=== PATIENT | male | born 1965 | race Caucasian/White ===

== ENCOUNTER → 2016-10-28 | Outpatient (CLI) | payer BC ==
[~2016-10-28] MED LIST: AZIT500T3 PO
[2016-10-28 12:38] LABS: BLOOD UREA NITROGEN 20 mg/dl (7-18); BUN/CREATININE RATIO 18.2 (10-20); CARBON DIOXIDE 26 mmol/L (21-32); CHLORIDE 109 mmol/L (98-107); CHOLESTEROL 196 mg/dl (0-200); GLUCOSE 148 mg/dl (70-99); POTASSIUM 4.3 mmol/L (3.5-5.1); SODIUM 142 mmol/L (136-145)
[2016-10-28 12:41] LABS: CHOLESTEROL/HDL RATIO 3.9; HDL CHOLESTEROL 50 mg/dl; LDL CHOLESTEROL CALCULATED 115 mg/dl; TRIGLYCERIDES 156 mg/dl (0-150); VERY LOW DENSITY LIPOPROT CALC 31 mg/dl
== END | disposition home or self-care (01) ==
LOC: C.LABPVFM 09:20
PROVIDERS: ATTEND Nurse Practitioner Family
DX: Z00.00 Encounter for general adult medical examination without abnormal findings (principal); Z13.220 Encounter for screening for lipoid disorders

== ENCOUNTER → 2016-11-04 | Outpatient (CLI) | payer BC ==
[2016-11-04 12:56] LABS: ESTIMATED AVERAGE GLUCOSE 163 mg/dl; HA1C FLAG Normal (Normal)
== END | disposition home or self-care (01) ==
LOC: C.LABPVFM 09:39
PROVIDERS: ATTEND Nurse Practitioner Family
DX: R73.01 Impaired fasting glucose (principal)

== ENCOUNTER → 2017-02-03 | Outpatient (CLI) | payer BC ==
[2017-02-03 12:28] LABS: BLOOD UREA NITROGEN 23 mg/dl (7-18); BUN/CREATININE RATIO 20.5 (10-20); CALCIUM 9.1 mg/dl (8.5-10.1); CARBON DIOXIDE 28 mmol/L (21-32); CHLORIDE 104 mmol/L (98-107); GLUCOSE 129 mg/dl (70-99); POTASSIUM 4.2 mmol/L (3.5-5.1); SODIUM 140 mmol/L (136-145)
[2017-02-03 13:03] LABS: ESTIMATED AVERAGE GLUCOSE 140 mg/dl; HA1C FLAG Normal (Normal)
== END | disposition home or self-care (01) ==
LOC: C.LABPVFM 08:01
PROVIDERS: ATTEND Nurse Practitioner Family
DX: E11.9 Type 2 diabetes mellitus without complications (principal)

== ENCOUNTER → 2017-06-30 | Day surgery (SDC) | payer BC ==
[2017-06-26 11:22] VITALS: Ht 177.8 cm; Wt 95.5 kg
[~2017-06-30] VITALS: Ht 177.8 cm; Wt 95.5 kg
[~2017-06-30] MED LIST changes: -AZIT500T3 PO; +LISI-729 PO; +METF500T PO; +PROPOFOL IV EMULSION 10 MG/ML 20 ML VIAL IV ONE
[2017-06-30 09:25] VITALS: TEMP 36.7
--- NOTE | 2017-06-30 09:39 | Endo History and Physical ---
History & Physical Date of Service: Jun 30, 2017. Chief Complaint: Screening Referring Physician: RELL Bush History of Present Illness 52 yo CM who presents for screening colonoscopy. Past Surgical History Hx Cardiac Surgery: No Hx Internal Defibrillator: No Hx Pacemaker: No Hx Abdominal Surgery: No Hx of Implantable Prosthesis: No Hx Post-Op Nausea and Vomiting: No Hx Cancer Surgery: Yes (SKIN EXCISION ON BACK) Hx Orthopedic: Yes (LUMBAR FUSION, LUMBAR FUSION REVISION) Hx Urinary Tract Surgery: No Family History None Social History Smoking Status: Never Smoker Hx Substance Use: No Hx Alcohol Use: Yes (OCCASIONALLY) Allergies Coded Allergies: Morphine (Verified Allergy, Unknown, VOMITTING, 06/26/17) Current Medications Reported Home Medications Medications Dose Route/Sig Max Daily Dose Days Date Category Zestril (Lisinopril) 5 Mg Tab 5 Mg PO QAM 06/26/17 Reported Glucophage (Metformin Hcl) 500 Mg Tab 500 Mg PO BID 06/26/17 Reported Vital Signs Weight (Kilograms): 95.45 Height (Feet): 5 Height (Inches): 10 Date Time Temp Pulse Resp B/P (MAP) Pulse Ox O2 Delivery O2 Flow Rate FiO2 06/30/17 09:25 36.7 68 18 127/87 (100) 97 Room Air Physical Exam General Appearance: WD/WN, no apparent distress Respiratory/Chest: Auscultation: breath sounds normal Cardiovascular: Heart Auscultation: RRR Abdomen: Bowel Sounds: normal Inspection & Palpation: soft, non-distended, no tenderness, guarding & rebound Assessment and Plan Assessment: 52 yo CM who presents for screening colonoscopy. Plan: Proceed with colonoscopy.
--- NOTE | 2017-06-30 10:21 | Discharge Instructions ---
Endoscopy Patient Instructions Date / Procedure(s) Performed Jun 30, 2017. Colonoscopy Allergy Information Coded Allergies: Morphine (Verified Allergy, Unknown, VOMITTING, 06/30/17) Discharge Date / Findings Jun 30, 2017. Colon polyp Internal hemorrhoids Medication Instructions Stopped Medication(s): Patient was told to stop taking his metformin on monday. OK to resume all medications today as prescribed Reported Home Medications Medications Dose Route/Sig Max Daily Dose Days Date Category Zestril (Lisinopril) 5 Mg Tab 5 Mg PO QAM 06/26/17 Reported Glucophage (Metformin Hcl) 500 Mg Tab 500 Mg PO BID 06/26/17 Reported Provider Instructions Activity Restrictions - No exercising or heavy lifting for 24 hours. - Do not drink alcohol the day of the procedure. - Do not drive a car or operate machinery until the day after the procedure. - Do not make any important decisions or sign important papers in 24 hours after the procedure. Following Day: - Return to full activity which may include returning to work/school. Diet Start your diet with liquids and light foods (jello, soup, juice, toast). Then eat your usual diet if not nauseated. Treatment For Common After Affects For mild abdominal pain, bloating, or excessive gas: - Rest - Eat lightly - Lie on right side Follow-Up Information Follow-up with RELL Bush as scheduled Anesthesia Information What You Should Know You have had a procedure that required some medicine to reduce anxiety and discomfort. This treatment is called moderate sedation. After receiving the treatment, you may be sleepy, but you will be able to breathe on your own. The effects of the treatment may last for several hours. Follow these instructions along with Activity/Diet recommendations noted above: * Do NOT do anything where dizziness or clumsiness would be dangerous. * Rest quietly at home today, then you can be up and about tomorrow. * Have a responsible person stay with you the rest of today. * You may have had an I.V. today. If so, you may take the dressing off later today. Recommendations Call your doctor if: * Trouble breathing * Continuous vomiting for more than 24 hours * Temperature above 101 degrees * Severe abdominal pain or bloating * Pain not relieved by pain medicine ordered * There is increased drainage or redness from any incision * A large amount of rectal bleeding greater than 2-3 tablespoons. (If you had a polyp/s removed or have hemorrhoids, a small amount of blood - from the rectum is to be expected.) * You have any unanswered questions or concerns. IN THE EVENT OF A SERIOUS EMERGENCY, GO TO THE NEAREST EMERGENCY ROOM Your discharge instructions were prepared by provider Toni Michel. Patient Instructions Signature Page Jorge Ann Patient (or Guardian) Signature/Date: I have read and understand the instructions given to me by my caregivers. Caregiver/RN/Doctor Signature/Date: The above-named patient and/or guardian has received patient instructions on this date. + Original Patient Signature Page (only) stays with chart. Please make copy for patient.
--- NOTE | 2017-06-30 10:36 | GI REPORT ---
Procedure Date: 06/30/2017 9:49 AM Procedure: Colonoscopy Indications: Screening for colorectal malignant neoplasm Medicines: Monitored Anesthesia Care Complications: No immediate complications. Estimated Blood Loss: Estimated blood loss: none. Procedure: Pre-Anesthesia Assessment: - Prior to the procedure, a History and Physical was performed, and patient medications and allergies were reviewed. The patient's tolerance of previous anesthesia was also reviewed. The risks and benefits of the procedure and the sedation options and risks were discussed with the patient. All questions were answered, and informed consent was obtained. Prior Anticoagulants: The patient has taken no previous anticoagulant or antiplatelet agents. ASA Grade Assessment: II - A patient with mild systemic disease. After reviewing the risks and benefits, the patient was deemed in satisfactory condition to undergo the procedure. After I obtained informed consent, the scope was passed under direct vision. Throughout the procedure, the patient's blood pressure, pulse, and oxygen saturations were monitored continuously. The scope was introduced through the anus and advanced to the terminal ileum. The colonoscopy was performed without difficulty. The patient tolerated the procedure well. The quality of the bowel preparation was good. The terminal ileum, ileocecal valve, appendiceal orifice, and rectum were photographed. Findings: The perianal and digital rectal examinations were normal. A 4 mm polyp was found in the ascending colon. The polyp was sessile. The polyp was removed with a cold snare. Resection and retrieval were complete. Non-bleeding internal hemorrhoids were found during retroflexion. The hemorrhoids were small. Impression: - One 4 mm polyp in the ascending colon, removed with a cold snare. Resected and retrieved. - Non-bleeding internal hemorrhoids. Recommendation: - Resume previous diet. - Continue present medications. - Repeat colonoscopy for surveillance based on pathology results. - Return to primary care physician as previously scheduled. Toni Michel, DO 06/30/2017 10:36:17 AM This report has been signed electronically. Note Initiated On: 06/30/2017 9:49 AM I attest to the content of the Intraoperative Record and orders documented therein, exceptions below
[2017-06-30 10:42] VITALS: BP 129/94; PULSE 67; O2SAT 98
--- NOTE | 2017-06-30 10:49 | Anesthesiology Progress Note ---
Anesthesia Post Op Note Date & Time Jun 30, 2017 at 10:49 Vital Signs Pain Intensity: 2 Vital Signs Past 12 Hours Date Time Temp Pulse Resp B/P (MAP) Pulse Ox O2 Delivery O2 Flow Rate FiO2 06/30/17 10:42 67 18 129/94 (106) 98 Room Air 06/30/17 10:27 70 18 119/93 (102) 96 Room Air 06/30/17 10:12 75 16 122/96 (105) 96 Room Air 06/30/17 09:25 36.7 68 18 127/87 (100) 97 Room Air Notes Mental Status: alert / awake / arousable, participated in evaluation Pt Amnestic to Procedure: Yes Nausea / Vomiting: adequately controlled Pain: adequately controlled Airway Patency, RR, SpO2: stable & adequate BP & HR: stable & adequate Hydration State: stable & adequate Anesthetic Complications: no major complications apparent
== END | disposition home or self-care (01) ==
LOC: C.GI 09:08
PROVIDERS: ATTEND Internal Medicine
DX: Z12.11 Encounter for screening for malignant neoplasm of colon (principal); D12.2 Benign neoplasm of ascending colon; K64.8 Other hemorrhoids; E11.9 Type 2 diabetes mellitus without complications; I10 Essential (primary) hypertension; Z98.1 Arthrodesis status; Z79.84 Long term (current) use of oral hypoglycemic drugs

== ENCOUNTER → 2017-07-29 | Outpatient (CLI) | payer BC ==
[~2017-07-29] MED LIST changes: -PROPOFOL IV EMULSION 10 MG/ML 20 ML VIAL IV ONE
[2017-07-29 11:08] LABS: ALBUMIN 3.8 gm/dl (3.4-5.0); ALT/SGPT 34 U/L (12-78); AST/SGOT 16 U/L (15-37); BLOOD UREA NITROGEN 20 mg/dl (7-18); CALCIUM 8.8 mg/dl (8.5-10.1); CARBON DIOXIDE 28 mmol/L (21-32); CHOLESTEROL 150 mg/dl (0-200); CREATININE 1.04 mg/dl (0.60-1.40); GLUCOSE 110 mg/dl (70-99); POTASSIUM 4.4 mmol/L (3.5-5.1); SODIUM 136 mmol/L (136-145)
[2017-07-29 11:09] LABS: HEMOGLOBIN A1C 6.2 % (4.5-5.6)
[2017-07-29 11:10] LABS: ALKALINE PHOSPHATASE 68 U/L (45-117); LDL CHOLESTEROL CALCULATED 69 mg/dl; TOTAL PROTEIN 7.1 gm/dl (6.4-8.2)
== END | disposition home or self-care (01) ==
LOC: C.LAB1850 08:36
PROVIDERS: ATTEND Nurse Practitioner Family
DX: E11.9 Type 2 diabetes mellitus without complications (principal); E78.5 Hyperlipidemia, unspecified

== ENCOUNTER → 2017-11-18 | Outpatient (CLI) | payer BC ==
[2017-11-18 10:32] LABS: HEMOGLOBIN A1C 6.2 % (4.5-5.6)
== END | disposition home or self-care (01) ==
LOC: C.LAB1850 08:41
PROVIDERS: ATTEND Nurse Practitioner
DX: E11.9 Type 2 diabetes mellitus without complications (principal)